=== PATIENT | male | born 1955 | race Caucasian/White ===

== ENCOUNTER 2020-10-11 06:57 | Inpatient (IN) ==
[2020-10-06 11:11] LABS: Basophils # 0.1 10*3/uL (0.0-0.2); Basophils % 0.8 % (0.0-0.8); Eosinophils # 0.3 10*3/uL (0.0-0.87); Eosinophils % 3.2 % (0.00-10.9); Hematocrit 42.2 VOL% (42.0-52.0); Hemoglobin 14.9 GM/DL (14.0-18.0); Immature Granulocytes % 0.4 %; Immature Granulocytes Absolute 0.04 #; Lymphocytes # 1.8 10*3/uL (1.4-4.0); Mean Corpuscular HGB Conc 35.3 GM/DL (32-36); Mean Corpuscular Volume 101.9 FL (87-102); Mean Platelet Volume 9.7 FL (9.6-12.0); Monocytes % 6.3 % (1.7-12.7); Neutrophils % 69.3 % (38.7-73.9); Platelet Count 221 T/CUMM (130-400); Red Blood Count 4.14 MC/CUMM (3.8-5.5); Red Cell Distribution Width 12.2 % (9.3-17.3); White Blood Count 9.1 T/CUMM (4-12)
[2020-10-06 11:30] LABS: Albumin 3.9 G/DL (3.4-5.0); Bilirubin,Total 1.3 MG/DL (0.2-1.0); Calcium 9.9 MG/DL (8.5-10.1); Osmolality,Calculated 284.1 MOS/KG (273-304); Potassium 4.6 MMOL/L (3.5-5.1); Total Protein 7.3 G/DL (6.4-8.2)
[2020-10-06 11:34] LABS: PT Patient Result 10.9 SECS (9.8-11.9)
[~2020-10-11 06:57] MED LIST: HEPARIN/NACL 0.9% 2 UNITS/ML 1,000 UNIT/500 ML BAG IV ONE; LIDOCAINE 1% 5 ML VIAL ONE; NITROGLYCERIN DRIP 50 MG/250 ML BOTTLE IV ONE; PHENYLEPHRINE 10 MG/1 ML VIAL IV ONE
[2020-10-11] MEDS ORDERED: ACETAMINOPHEN 500 MG TABLET PO ONE (08:17)
[2020-10-11] MEDS ORDERED: FAMOTIDINE 20 MG TABLET PO ONE (08:17)
[2020-10-11] MEDS ORDERED: DIAZEPAM 5 MG TABLET PO ONE (08:17)
[2020-10-11] MEDS ORDERED: ceFAZolin 1,000 MG VIAL ONE ×3 (08:22→10:48)
[2020-10-11] MEDS ORDERED: LACTATED RINGERS 1,000 ML IV SCH (09:00)
[2020-10-11] MEDS ORDERED: DEXAMETHASONE 4 MG/1 ML VIAL ONE ×2 (09:45→11:18)
[2020-10-11] MEDS ORDERED: LIDOCAINE 1% 5 ML VIAL ONE (09:45)
[2020-10-11] MEDS ORDERED: ROPIVACAINE 0.5% 30 ML VIAL ONE (09:45)
[2020-10-11] MEDS ORDERED: ROCURONIUM 50 MG/5 ML VIAL IV ONE (09:51)
[2020-10-11] MEDS ORDERED: ETOMIDATE 40 MG/20 ML VIAL IV ONE (09:51)
[2020-10-11] MEDS ORDERED: propofoL 200 MG/20 ML VIAL IV ONE (09:51)
[2020-10-11] MEDS ORDERED: LIDOCAINE 2% 5 ML VIAL ONE (09:51)
[2020-10-11] MEDS ORDERED: fentaNYL 100 MCG/2 ML VIAL ONE (09:52)
[2020-10-11] MEDS ORDERED: HEPARIN 5,000 UNIT/1 ML VIAL ONE (09:52)
[2020-10-11] MEDS ORDERED: MIDAZOLAM 2 MG/2 ML VIAL ONE (09:52)
[2020-10-11] MEDS ORDERED: LIDOCAINE 1% 20 ML VIAL ONE (09:52)
[2020-10-11] MEDS ORDERED: DEXMEDETOMIDINE 200 MCG/2 ML VIAL ONE (09:54)
[2020-10-11] MEDS ORDERED: PHENYLEPHRINE 1 MG/10 ML SYRINGE IV ONE (09:57)
[2020-10-11] MEDS ORDERED: HEPARIN 10,000 UNIT/10 ML VIAL ONE (10:08)
[2020-10-11] MEDS ORDERED: PROTAMINE SULFATE 50 MG/5 ML VIAL IV ONE (10:08)
[2020-10-11] MEDS ORDERED: ePHEDrine 50 MG/ML VIAL ONE (10:48)
[2020-10-11] MEDS ORDERED: SEVOFLURANE 1 UNIT/15 MINUTE INH ONE ×5 (11:01→12:10)
[2020-10-11] MEDS ORDERED: GLYCOPYRROLATE 0.4 MG/2 ML VIAL ONE (11:01)
[2020-10-11] MEDS ORDERED: ONDANSETRON 4 MG/2 ML VIAL ONE (11:18)
[2020-10-11] MEDS ORDERED: SUGAMMADEX 200 MG/2 ML VIAL IV ONE (11:46)
[2020-10-11] MEDS ORDERED: oxyCODONE/ACETAMINOPHEN 5-325 MG TABLET PO PRN ×2 (11:57)
[2020-10-11] MEDS ORDERED: DEXTROSE 50% 25 GM/50 ML VIAL IV PRN (11:57)
[2020-10-11] MEDS ORDERED: PROMETHAZINE 25 MG/1 ML VIAL IM PRN (11:57)
[2020-10-11] MEDS ORDERED: HYDROmorphone 2 MG/1 ML VIAL IV PRN ×2 (11:57)
[2020-10-11] MEDS ORDERED: ONDANSETRON 4 MG/2 ML VIAL IV PRN (11:57)
[2020-10-11] MEDS ORDERED: NALOXONE 0.4 MG/ML VIAL IV PRN (11:57)
[2020-10-11] MEDS ORDERED: GLUCAGON 1 MG VIAL IM PRN (11:57)
[2020-10-11] MEDS ORDERED: NITROPRUSSIDE 100 MG in DEXTROSE 5% 250 ML IV SCH (12:00)
[2020-10-11] MEDS: LACTATED RINGERS 1,000 ML IV SCH ×3 (12:34→23:55)
[2020-10-11] MEDS: PHENYLEPHRINE DRIP 40 MG/250 ML PREMIX IV SCH (13:30)
[2020-10-11] MEDS ORDERED: LACTATED RINGERS 500 ML IV ONE (14:00)
[2020-10-11] MEDS ORDERED: DOPamine 800 MG/250 ML PREMIX IV PRN (15:21)
[2020-10-12 05:09] LABS: Calcium 8.6 MG/DL (8.5-10.1); Osmolality,Calculated 283.3 MOS/KG (273-304)
[2020-10-12 07:46] VITALS: BP 116/42
[2020-10-12] MEDS: LACTATED RINGERS 1,000 ML IV SCH (08:28)
[2020-10-12] MEDS ORDERED: CLOPIDOGREL 75 MG TABLET PO SCH ×2 (09:00)
[2020-10-12] MEDS ORDERED: NON-FORMULARY MEDICATION (Aspirin 81 mg Tablet) PO SCH (09:00)
[2020-10-12] MEDS ORDERED: CARDITONE PO SCH (09:00)
[2020-10-12] MEDS ORDERED: ASPIRIN EC 81 MG TABLET PO SCH (09:00)
[2020-10-12] MEDS ORDERED: LOSARTAN 50 MG TABLET PO SCH (09:00)
[2020-10-12] MEDS: PHENYLEPHRINE DRIP 40 MG/250 ML PREMIX IV SCH (13:51)
== END 2020-10-12 14:23 | disposition home or self-care (01) | DRG 39 ==
LOC: N.OR 06:57 → N.ICU 08:14 → N.SDSINP 08:16 → EDSTATUS 12:00 → N.ICU 12:53
PROVIDERS: ADMIT Surgery; ATTEND Surgery